=== PATIENT | female | born 1995 | race Caucasian/White ===

== ENCOUNTER 2023-06-23 08:46 | Outpatient (REF) | payer OTHER, SELFPAY ==
[2023-06-23 09:02] LABS: MANUAL DIFF FLAG NO
[2023-06-23 09:49] LABS: Basophils Percent Auto 0.7 % (0-2); Eosinophils Absolute Auto 0.4 X10*3/uL (0.0-0.4); Eosinophils Percent Auto 7.3 % (0-4); Hematocrit 36.4 % (37.0-47.0); Hemoglobin 12.5 g/dl (12.0-16.0); Imm Gran Abs Auto 0.01 X10*3/uL (0.00-0.03); Imm Gran Pct Auto 0.2 % (0.0-0.4); Lymphocytes Absolute Auto 1.7 X10*3/uL (1.2-4.9); Lymphocytes Percent Auto 29.1 % (20-40); Mean Corpuscular HGB Conc 34.3 g/dl (31.0-35.0); Mean Corpuscular Hemoglobin 29.8 pg (27.0-33.0); Mean Corpuscular Volume 86.9 fL (80.0-98.0); Mean Platelet Volume 10.3 fL (9.4-12.3); Monocytes Absolute Auto 0.4 X10*3/uL (0.1-1.2); Monocytes Percent Auto 6.1 % (2-11); Neutrophils Absolute Auto 3.3 x10*3/uL (2.0-8.3); Neutrophils Percent Auto 56.6 % (45-73); Platelet Count 261 X10*3/uL (160-400); Red Blood Count 4.19 X10*6/uL (4.20-5.50); Red Cell Distribution Width 12.5 % (11.0-16.0); White Blood Count 5.9 X10*3/uL (4.8-10.8)
[2023-06-23 10:03] LABS: Estimated Average Glucose 94 mg/dL; Hemoglobin A1c % 4.9 % (<6.0)
[2023-06-23 10:45] LABS: Alanine Aminotransferase 19 U/L (0-31); Albumin Level 4.3 g/dL (3.5-5.0); Alkaline Phosphatase 72 U/L (39-117); Anion Gap 13 (12-20); Aspartate Amino Transferase 19 U/L (5-31); Bilirubin Total 0.5 mg/dL (0.0-1.0); Blood Urea Nitrogen 10 mg/dL (9-16); Calcium 9.5 mg/dL (8.4-10.2); Carbon Dioxide 23 mmol/L (22-29); Chloride 107 mmol/L (96-108); Estimated Glomerular Filt Rate > 60; Glucose Fasting 73 mg/dL (60-99); Iron 148 mcg/dL (30-160); Percent Iron Saturation 42 % (15-50); Phosphorus 3.7 mg/dL (2.7-4.5); Potassium 4.2 mmol/L (3.3-5.1); Sodium 139 mmol/L (135-145); Total Iron Binding Capacity 354 mcg/dL (228-428); Total Protein 7.2 g/dL (6.5-8.0); Unsaturated Iron Binding 206 ug/dL
[2023-06-23 11:05] LABS: Ferritin 13 ng/mL (10-122); Free T4 (Free Thyroxine) 0.77 ng/dL (0.71-1.85); Thyroid Stimulating Hormone 2.79 uIU/mL (0.32-4.0); Vitamin D 25-OH Total 25.6 ng/mL (>30)
[2023-06-23 11:10] LABS: Folate 9.9 ng/mL (> or = 4.0); Vitamin B12 451 pg/mL (200-900)
== END 2023-06-23 08:47 | disposition home or self-care (01) ==
LOC: HO.LAB 08:46
PROVIDERS: PCP Nurse Practitioner Adult Health; Visit Provider Psychiatry & Neurology Psychiatry
DX: F39 Unspecified mood [affective] disorder (principal); F50.82 Avoidant/restrictive food intake disorder; F41.9 Anxiety disorder, unspecified
CPT/HCPCS: 36415; 80053; 82306; 82607; 82728; 82746; 83036; 83540; 83735; 84100; 84439; 84443; 85025

== ENCOUNTER → 2023-06-28 14:03 | Outpatient (REF) | payer OTHER, SELFPAY ==
--- NOTE | 2023-06-28 14:07 | ECG_ITS ---
Test Reason : R/O QTC FOR MED CONSIDERATIONS Blood Pressure : / mmHG Vent. Rate : 090 BPM Atrial Rate : 090 BPM P-R Int : 136 ms QRS Dur : 096 ms QT Int : 358 ms P-R-T Axes : 069 085 053 degrees QTc Int : 437 ms Normal sinus rhythm Normal ECG No previous ECGs available Referred By: Phyllis Thompson Electronically Signed By:HUYEN KENDRICK MD
== END ==
LOC: HO.CARD 14:03
PROVIDERS: PCP Nurse Practitioner Adult Health; Visit Provider Psychiatry & Neurology Psychiatry
DX: F34.89 Other specified persistent mood disorders (principal); F90.9 Attention-deficit hyperactivity disorder, unspecified type
CPT/HCPCS: 93005

== ENCOUNTER → 2023-06-28 14:07 | Outpatient (BNV) | payer OTHER, SELFPAY | PROVIDERS: PCP Nurse Practitioner Adult Health; Visit Provider Internal Medicine Cardiovascular Disease | DX: F34.89 Other specified persistent mood disorders (principal) | CPT/HCPCS: 93010 ==

== ENCOUNTER 2023-07-08 10:15 | Outpatient (RCR) | payer OTHER, SELFPAY ==
[2023-06-21 11:52] VITALS: BP 114/78; PULSE 81; TEMP 36.9
[2023-06-21 11:53] VITALS: BMI 23.0
--- NOTE | 2023-06-21 12:44 | PC.ADMIT ---
Patient is a 27 year old single individual who prefers to use they/them pronouns however stated she/her pronouns are ok as well. They were referred to PHP by their therapist d/t struggling with emotional regulation, depression and anxiety along with trauma. Patient reports having intrusive suicidal thoughts that they don't want to have stating, It's more intrusive thoughts I don't want to have them. Patient stated they have had thoughts thinking , Your better off or cut yourself when feeling increased stress. They denied any plans or intention of killing themselves . Patient reports they have supportive friends and parents. Patient is staying with her parents for more support in addition to their house being closer to the program. Patient stated, I try not to be along with my thoughts . Patient reports current job stress, works with [employer]. Patient is currently taking a leave of absence from work to work on their mental health. Stated they wants more control over their life in relation to work life. Hopes to get position they applied for in [place] and waiting to hear if they get the position. Patient is alert and oriented x4. Calm and cooperative. Reports intrusive passive SI, denied any plan or intention of killing themselves. Patient thoughts are clear and logical. They present with depressed mood and anxious affect. They were given a copy of their safety plan if needed. Medications reconciled with patient and patient's pharmacy. They report taking medications as prescribed and recently purchased a pill counter that is attached to their medication bottle to help remind them if they took the medication or not which they state has been very helpful.
--- NOTE | 2023-06-21 22:21 | P.HPPSP_ITS ---
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 She reports for the past 1.5 years she has had episodes of depression which have improved since addition of Lexapro about 1.5 months ago, although she continues to experience dramatic shifts in mood (more so that just depression) that occur most days throughout the day. She shares having a lot of SI /SIB thoughts ( more SIB than SI), sometimes more ignorable than other times, but is chronic and just under the surface... when things are good I can ignore them... not too bad right now . Lexapro was titrated to 20 mg over the past 1.5 months which has taken edge off thoughts, however anxiety seems worse, feels baseline issues with distractibility and focus are interfering with increasing demands she is under including being amidst job applications, ill pet. Mood stability at a 4 out of 10 (10 ideal), and rating symptoms severity: cognitive anxiety 6.5 /10, somatic anxiety 4 /10, depression 4 /10 and i rritability/mood swings severity at a 6 or7 /10. Denies alcohol or substance issues. No history of insomnia, usually sleeps 6-9 hours, sometimes less limited to work/school but will make up sleep. Presents as hyperthymic at baseline, animated, hypertalkative, impulsive, but subjectively reports energy as low. No risk-taking behaviors, describes pervasive generalized anxiety, gets overstimulated in social situations. Denies any history of AH, VH, paranoia or delusional thoughts. 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 She reports having had long standing neurodevelopmental issues with sensory integration challenges (tactile, auditory) as well as issues with feeding (textures) and carries a diagnosis of ARFID. Her mother is a automatic shirring machine operator who works at [employer]. Said she made friends easily growing up, but had difficulties holding onto friendships, suspects she was friendly enough to make friends, but also very shy early on, with persisting social awkwardness and impulsiveness which may have lent to some interpersonal limitations. I was treated like the annoying little sibling in school. I've done a lot of masking to fit in . Also notes that people (advisers/teachers/peers) have often undercalculated her academic abilities, does not come across as intelligent as she is, despite considerable academic success and ongoing education in STEM (currently working toward her Master's degree) No IP, PHP or detox admissions No suicide attempts, some minor (often unintentional) self harming biting tongue til it bleeds... liked the taste Scratched self on arms in HS EDB: dx ARFID, problems with certain textures as well as extensive food allergies severely limiting diet Psychiatrist: Preet Reid (recent had 2 nd appointment, prior to that provider was PCP) Therapist: Libra Other trials: Buspar (bad brain zaps), hyocyamine, hydroxyzine (blacked out) CURRENT MEDICATIONS: Lexapro 20 mg qd Flonase Linzess (linaclotide) for IBS [facility] Medical History (Updated 07/24/23 @ 17:59 by Phyllis Thompson MD) Asthma History of ovarian cyst History of Helicobacter pylori infection Syncope Migraines Avoidant-restrictive food intake disorder (ARFID) IBS (irritable bowel syndrome) Narrative: h/o early ear infections h/o severe food allergies - anaphylaxis - all fruits (including extracts and flavoring), vanilla, peanuts, tree nuts, sesame h/o ARFID - sincedoesnt weigh self but suspects her weight has been stable. Appetite stable but struggles with regular po intake due to tactile issues/food repulsions as well as anxiety regarding severe food allergies I've been reading food labels since I learned to read as a toddler h/o Irritable Bowel Syndrome Surgical History (Updated 06/21/23 @ 11:46 by Amara Griggs RN) History of endoscopy History of colonoscopy Family History: Mother and PGM with anxiety maternal aunt with personality disorder maternal uncle with schizophrenic illness Social History: Not , no children Was living in apartment in [place] during school just moved back home Currently living at home with parents, as she finishes her thesis on Optics Raised by her parents as an only child, no siblings - mom is a automatic shirring machine operator, dad works as health and safety tech at a local station Close with parents, but extended family dysfunction and estrangement from cousins/relatives Graduate HS in 2016 Graduate undergraduate from [employer] in 2019, majoring in Physics Currently in Master's program at [employer], anticipates completing degree this summer 2023 Currently amidst job applications, anticipates traveling to [place] for job interview Substance History: No alcohol, cannabis, nicotine or substance use history. Drinks coffee 1-2 times/day. Trauma History: reports having had a tough relationship with mom who was emotionally immature alludes to issues with parentification growing up, also some complicated friendship issues in [place], but otherwise denies physical, sexual, emotional abuse or traumatic events or losses Diagnostics Vital Signs (24Hr): Vital Signs - 24 hr 06/21/23 11:52 Temperature 98.5 F Pulse Rate 81 Blood Pressure 114/78 BMI result Body Mass Index 23.0 Meds/Allergies Meds Home Medications ?Medication ?Instructions ?Recorded ?Confirmed ?Type albuterol sulfate 90 mcg/actuation 2 puff inhalation Q4H PRN sob 06/21/23 06/21/23 History aerosol inhaler escitalopram oxalate 10 mg tablet 20 mg PO DAILY 06/21/23 06/21/23 History famotidine 20 mg tablet 20 mg PO DAILY 06/21/23 06/21/23 History fluticasone propionate 50 2 spray intranasal DAILY 06/21/23 06/21/23 History mcg/actuation nasal spray,suspension ibuprofen 200 mg tablet 200 - 600 mg PO Q6H PRN Pain 06/21/23 06/21/23 History linaclotide 72 mcg capsule 72 mcg PO QAM 06/21/23 06/21/23 History (Linzess) Allergies Allergies Allergy/AdvReac Type Severity Reaction Status Date / Time amoxicillin Allergy diaper rash Verified 06/21/23 11:49 clavulanic acid Allergy diaper rash Verified 06/21/23 11:49 [From Augmentin] hydroxyzine Allergy black out Verified 06/21/23 11:49 metronidazole Allergy nausea, Verified 06/21/23 11:49 vertigo, vision changes. peanut Allergy Anaphylaxis Verified 06/21/23 11:50 sesame oil Allergy Anaphylaxis Verified 06/21/23 11:51 tree nut Allergy Anaphylaxis Verified 06/21/23 11:50 vanilla extract flavor Allergy Anaphylaxis Verified 06/21/23 11:51 fruit Allergy Anaphylaxis Uncoded 06/21/23 12:53 Mental Status Exam Mental Status Exam Narrative: Alert, oriented, in no acute distress. Cooperative, engaged, friendly, animated, fidgeting at times, bouncing leg, frequently shiftin in seat but remains seated through encounter. Well-related. Eye contact maintained. Mood variable, labile. Affect variable, brighter than expected, no notable irritability, lability or tearfulness. Speech talkative, but normal rate rhythm, no pressured speech or latency. Maintains reciprocity. Thought process scattered, linear, coherent. Thought content related to stressors, executive dysfunction, feeling overstimulated, erratic, some impulsivity, denies helplessness and hopelessness, denies SI, intention or plan. Denies any aggressive ideation. No paranoia or delusional content elicited. No evidence of psychosis. Insight and judgment fair but adequate. Assessment & Plan Assessment & Plan (1) Other specified persistent mood disorders: Status: Acute Code(s): F34.89 - Other specified persistent mood disorders (2) Attention-deficit hyperactivity disorder, unspecified type: Status: Acute Code(s): F90.9 - Attention-deficit hyperactivity disorder, unspecified type (3) Generalized anxiety disorder: Status: Acute Code(s): F41.1 - Generalized anxiety disorder (4) Avoidant-restrictive food intake disorder (ARFID): Status: Acute Code(s): F50.82 - Avoidant/restrictive food intake disorder Assessment and Plan: hx suggestive of neurodivergence, r/o PDD Plan Admit to [facility] VS reviewed: abrefile; BP 114/78;?81 bpm start aripiprazole 1 mg qd (will titrate to whole tablet as tolerated) Continue regular medications for now Routine lab work ordered UDS, EKG as indicated MassPat reviewed Continue to monitor as per protocol Patient educated on: diagnosis and medication risk/benefits Informed Consent: understands Reason for continued partial hosp. stay Substantial Risk for: inability to function and med/psych decompensation Certification I certify that partial hospital treatment is medically necessary due to the symptoms and problems resulting from the patient's mental illness and the failure to treat the patient at the partial hospital level of care would likely result in the patient requiring inpatient psychiatric care which could not be prevented at a less intensive level of care. Time Spent With Patient Time: Total time managing care of this patient today __60__ minutes.
--- NOTE | 2023-06-23 14:23 | HO.PHP ---
Client's case has been opened and reviewed in treatment team.
--- NOTE | 2023-06-27 18:21 | HO.PHPPROGNO ---
Subjective Subjective Date of Service: 06/27/23 Reason For Visit: MDD,GENE Interim History: Continues with emotional dysregulation marked by high reactivity, easily emotional and tearful. Was in fact tearful when she came onto telehealth appointment. Had a 1-2 minute delay trying to connect, staff was assisting her and supportive but says this is how I get...just any little thing can easily overwhelm me and I start to cry . Aside from the tearfulness, she recovered spontaneously while wiping tears away and was her bright self now that the issue was resolved. She notes that her emotionality is the cause of a lot of my interpersonal problems . She describes a tendency to be hypersensitive to feedback, or sometimes getting momentarily mixed signals or misunderstood or will misunderstand interactions on account of feeling heightened and easily overstimulated in interpersonal interacitons, even ones she is enjoying. Often times feeling overstimulated isnt necessarily stemming from social anxiety. Though identifies as a people pleaser, she is working on self advocacy and trying to communicate and be more grounded in interactions. but is difficult. Considerable attentional dysregulation described by patient, which she is not fillu aware of . Just easily getting caught up in things. Endorses occasional intrusive thoughts, vvarying things, but denies any actual SI and SHB not really . Sleep is inconsistent but tries to maintain sleep schedule. SHe needs paprwork filled out for return to work. No issues wih alcohol or substance use or cannabis. Labwork mostly unremarkable aside from mild vitamin D insuffiency, I ordered 5000 iu to take for the next 2 months and then can return to 2000 IU as she is presribed. She asks for the order for routine EKG (to establish baseline as we anticipate initiating a stimulant medication later in the week) which she says she will do after program today. Medication Compliance: Yes Side effects from medications: No Attending Groups: Yes Review of Systems Acute medical concerns: No Mental Status Exam Mental Status Exam Narrative: Alert, oriented, in no acute distress. Cooperative, engaged, animated, fidgeting at times. Eye contact intermittent. Mood variable, labile, tearful. Affect variable, brighter than expected, no notable irritability, lability or tearfulness. Speech talkative, but normal rate rhythm, no pressured speech or latency. Thought process scattered, linear, coherent. Thought content related to stressors, executive dysfunction, feeling overstimulated, erratic, some impulsivity, denies helplessness and hopelessness, denies SI, intention or plan. Denies any aggressive ideation. No paranoia or delusional content elicited. No evidence of psychosis. Insight and judgment fair but adequate. Diagnostics Vital Signs (24Hr): BMI result Body Mass Index 23.0 Assessment & Plan Assessment & Plan (1) Other specified persistent mood disorders: Status: Acute Code(s): F34.89 - Other specified persistent mood disorders (2) Attention-deficit hyperactivity disorder, unspecified type: Status: Acute Code(s): F90.9 - Attention-deficit hyperactivity disorder, unspecified type (3) Other mixed anxiety disorders: Status: Acute Code(s): F41.3 - Other mixed anxiety disorders (4) Avoidant-restrictive food intake disorder (ARFID): Status: Acute Code(s): F50.82 - Avoidant/restrictive food intake disorder Plan increase aripiprazole to 2 mg qd (will cont to titrate to 3.5 - 5 mg as tolerated) discussed trialing guanfacine, and stimulant (likely Vyvanse) once mood is better regulated start vitamin D 5000 IU daily for vitamin D insufficiency (for 3 months, then can cont at 2000 IU qd) may consider lowering dose of Lexapro to 15 mg continue other regular medications Routine lab work reviewed, pending routine EKG UDS as indicated continue to monitor Patient educated on: diagnosis and medication risk/benefits Informed Consent: understands Reason for contiued partial hosp. stay Substantial Risk for: inability to function and med/psych decompensation Certification I certify that partial hospital treatment is medically necessary due to the symptoms and problems resulting from the patient's mental illness and the failure to treat the patient at the partial hospital level of care would likely result in the patient requiring inpatient psychiatric care which could not be prevented at a less intensive level of care. Total time managing care of this patient today _30___ minutes. Discharge Plan Discharge Attending provider: Phyllis Thompson Additional Instructions: [facility] has an OP therapist, Libra Phillips, in which her next scheduled appointment is July 07, 2023 at 5 PM via telehealth. [facility] has a med provider, Preet Chen, in which her next scheduled appointment is July 22, 2023 at 9 AM via telehealth. Medications: New aripiprazole 2 mg tablet 2 mg PO BEDTIME Qty: 20 0RF cholecalciferol (vitamin D3) [Vitamin D3] 125 mcg (5,000 unit) tablet 125 mcg PO DAILY Qty: 30 2RF Rx Instructions: with meal Continued famotidine 20 mg tablet 20 mg PO DAILY Patient Comments: Last does a few days ago. albuterol sulfate 90 mcg/actuation Hfa Aerosol Inhaler 2 puff INHALATION Q4H PRN (Reason: sob) fluticasone propionate 50 mcg/actuation spray,suspension 2 spray intranasal DAILY escitalopram oxalate 10 mg tablet 20 mg PO DAILY Patient Comments: Patient stated recently increased to 2 tabs daily. Linzess 72 mcg capsule 72 mcg PO QAM No Action ibuprofen 200 mg Tablet 200 - 600 mg PO Q6H PRN (Reason: Pain) Patient Comments: Patient takes OTC Stand Alone Forms: Patient Portal Discharge page Print Language: Kyrgyz Telehealth Telehealth Telehealth Platform: Other (please specify) Location of provider rendering services: other (private office) Location of patient: other ([facility]) Patient Identification confirmed using: Name, : Yes Telehealth method: video Patient verbally consented to treatment: Yes
--- NOTE | 2023-07-01 22:59 | P.PNPSP_ITS ---
Subjective Subjective Date of Service: 07/01/23 Reason For Visit: MDD,GENE Interim History: Continues with emotional lability and intrusive thoughts. Easily triggered, became tearful in groups and in our session. She is tolerating Abilify but we are moving slowly due to hypersensitivity to side effects and general naivety and apprehension about medication. She started on a few granules and was able to increase to 1/2 tablet and now to 1 whole tablet of 2 mg. She is still quite dysregulated, whic makes work in groups challenging, as any emotionally or intellectually provoking content will make her cry. She gets frustrated with herself that she cries so easily and says it compels her to stick with the medication and has been compliant on the ABilify. She denies any adverse effects thus far, which is helping relieve some of her anxieties about taking a mood stabilizer and is feeling hopeful it will work. She was hyperfocused on an interaction from groups on Tuesday which triggered the ARFID stuff. Has been difficult to eat much in the past 2 days, she has been ruminating on something that was said. Endorses transient hopelessness, helplessness but denies any SI, urge, intention, plan nor thoughts of self harm. Attention regulation is still an issue, and will plan to start guanfacine and possibly low dose Vyvanse next week once ABlify is further titrated and mood is better regulated, as she continues to struggle with chronic ADHD symptoms. She has difficulty staying focused, and is scattered during our conversation. We will continue to titrate by 1 mg.day now that patient is feeling more comfortable and confident with the Abilify. WIll increase to 3 mg Sat and 3-4 mg on Tue, if tolerated will move to 4-5 mg by Tuesday. Will reassess early next week to see if further titration warranted before considerating next steps. Appetite variable, poor. Sleep has improved. Energy stable. Medication Compliance: Yes Side effects from medications: No Attending Groups: Yes Review of Systems Acute medical concerns: No Mental Status Exam Mental Status Exam Narrative: Alert, oriented, in no acute distress. Cooperative, engaged, animated, fidgeting at times. Eye contact intermittent. Mood variable, labile, tearful. Affect variable, brighter than expected, no notable irritability, lability or tearfulness. Speech talkative, but normal rate rhythm, no pressured speech or latency. Thought process scattered, linear, coherent. Thought content related to stressors, executive dysfunction, feeling overstimulated, erratic, some impulsivity, denies helplessness and hopelessness, denies SI, intention or plan. Denies any aggressive ideation. No paranoia or delusional content elicited. No evidence of psychosis. Insight and judgment fair but adequate. Diagnostics Vital Signs (24Hr): BMI result Body Mass Index 23.0 Assessment & Plan Assessment & Plan (1) Other specified persistent mood disorders: Status: Acute Code(s): F34.89 - Other specified persistent mood disorders (2) Attention-deficit hyperactivity disorder, unspecified type: Status: Acute Code(s): F90.9 - Attention-deficit hyperactivity disorder, unspecified type (3) Other mixed anxiety disorders: Status: Acute Code(s): F41.3 - Other mixed anxiety disorders (4) Avoidant-restrictive food intake disorder (ARFID): Status: Acute Code(s): F50.82 - Avoidant/restrictive food intake disorder Plan increase aripiprazole to 3-4 mg qd (will cont to slowly to 5 mg as tolerated) discussed trialing guanfacine, and stimulant (likely Vyvanse) nexy week continue vitamin D 5000 IU daily for vitamin D insufficiency (for 3 months, then can cont at 2000 IU qd) may consider lowering dose of Lexapro to 15 mg continue other regular medications Routine lab work reviewed, pending routine EKG UDS as indicated continue to monitor Patient educated on: diagnosis and medication risk/benefits Informed Consent: understands Reason for contiued partial hosp. stay Substantial Risk for: inability to function, rapid decompensation and med/psych decompensation Certification I certify that partial hospital treatment is medically necessary due to the symptoms and problems resulting from the patient's mental illness and the failure to treat the patient at the partial hospital level of care would likely result in the patient requiring inpatient psychiatric care which could not be prevented at a less intensive level of care. Total time managing care of this patient today __30__ minutes. Discharge Plan Discharge Attending provider: Phyllis Thompson Additional Instructions: [facility] has an OP therapist, Libra Phillips, in which her next scheduled appointment is July 07, 2023 at 5 PM via telehealth. [facility] has a med provider, Preet Chen, in which her next scheduled appointment is July 22, 2023 at 9 AM via telehealth. Medications: New aripiprazole 2 mg tablet 2 mg PO BEDTIME Qty: 20 0RF cholecalciferol (vitamin D3) [Vitamin D3] 125 mcg (5,000 unit) tablet 125 mcg PO DAILY Qty: 30 2RF Rx Instructions: with meal Continued famotidine 20 mg tablet 20 mg PO DAILY Patient Comments: Last does a few days ago. albuterol sulfate 90 mcg/actuation Hfa Aerosol Inhaler 2 puff INHALATION Q4H PRN (Reason: sob) fluticasone propionate 50 mcg/actuation spray,suspension 2 spray intranasal DAILY escitalopram oxalate 10 mg tablet 20 mg PO DAILY Patient Comments: Patient stated recently increased to 2 tabs daily. Linzess 72 mcg capsule 72 mcg PO QAM No Action ibuprofen 200 mg Tablet 200 - 600 mg PO Q6H PRN (Reason: Pain) Patient Comments: Patient takes OTC Stand Alone Forms: Patient Portal Discharge page Print Language: Faroese
--- NOTE | 2023-07-04 22:08 | P.PNPSP_ITS ---
Subjective Subjective Date of Service: 07/04/23 Reason For Visit: MDD,GENE Interim History: Patient seen for follow up. Has worked dose up to 4 mg daily. Noticing feeling tired in the AM. more difficult to get out of bed, which was not appreciated at 2 or 3 mg. Will plan to stay another night at 4 mg before moving up to 5 mg. Sleep has been good otherwise, feel rested. Tiredness clears after the first hour or so. Mood has been a bit better now...I feel like my bucket is bigger (for containing her emotions) and its much easier to manage my feelings without getting overwhelmed and crying. Rates mood stability as up to a 6 or 7 out of 10 (from a 2 on admission)/ SHe relays some incident in the past few days where she became so anxious she started to cry but was quickly able to settle down and reel it in (regain her composure) which she feels is a significant imrpovement. Endorses decrease in intrusive thoughts. Denies any SIB or SI. We discussed starting the guanfacine which she would like to start by cutting in half (give her sensitivity to medication). Will plan to start ADHD treatment on IR Adderall which will be easier to control for dosing and once we have a sense of how it affects her while on the medication and as it wears off, then will plan to transition to a long acting. I mention that Vyvanse comes in chewable formulation (which she may prefer controlling the dose better, as partial doses) however given her fruit allergy, she says that flavoring are often problematic for her and will plan to stick with the capsules. FOr now, I would like to see her a few more days working up the dose of Abilify before we start Adderall at 1/4 - 1/2 tablet in the AM. She denies any SI. Denies hx of HI, AH, VH. Patient does not use alcohol or cannabis or other substances. I will refill ABlify at 2 mg and 5 mg to enable dosing between 3.5 mg and 5 mg for the time being. APpetie and energy are intact. She denies any panic symptoms. ROS negative. 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 Medication Compliance: Yes Side effects from medications: No Attending Groups: Yes Review of Systems Acute medical concerns: No Mental Status Exam Mental Status Exam Narrative: Alert, oriented, in no acute distress. Cooperative, engaged, animated but calmer. Eye contact good. Mood bit better , labile, less tearful. Affect full range, brighter, no lability or tearfulness. Speech talkative, but normal rate rhythm, no pressured speech or latency. Thought process scattered, linear, coherent. Thought content related to stressors, executive dysfunction, feeling overstimulated, denies helplessness and hopelessness, denies SI, intention or plan. Denies any aggressive ideation. No paranoia or delusional content elicited. No evidence of psychosis. Insight and judgment fair but adequate. Diagnostics Vital Signs (24Hr): BMI result Body Mass Index 23.0 Assessment & Plan Assessment & Plan (1) Other specified persistent mood disorders: Status: Acute Code(s): F34.89 - Other specified persistent mood disorders (2) Attention-deficit hyperactivity disorder, unspecified type: Status: Acute Code(s): F90.9 - Attention-deficit hyperactivity disorder, unspecified type (3) Other mixed anxiety disorders: Status: Acute Code(s): F41.3 - Other mixed anxiety disorders (4) Avoidant-restrictive food intake disorder (ARFID): Status: Acute Code(s): F50.82 - Avoidant/restrictive food intake disorder Plan increase aripiprazole to 4-5 mg qd (will hold at 5 mg) start guanfacine Er 1 mg daily at 5pm. may consider starting in AM along with and stimulant this week plan to start Adderall 1.25 mg in the AM (alone without guanfacine at first) hold off starting Vyvanse for now, will see if insurance will cover/and in stock continue vitamin D 5000 IU daily for vitamin D insufficiency (for 3 months, then can cont at 2000 IU qd) may consider lowering dose of Lexapro to 15 mg (?contributing to emotional lability vs helping with anxiety) continue other regular medications Routine lab work reviewed (mild vit D defic, increase supplement from 2000 to 5000 IU for 2-3 months) Reviewed EKG wnl QTc ~420 ms UDS as indicated continue to monitor Certification I certify that partial hospital treatment is medically necessary due to the symptoms and problems resulting from the patient's mental illness and the failure to treat the patient at the partial hospital level of care would likely result in the patient requiring inpatient psychiatric care which could not be prevented at a less intensive level of care. Total time managing care of this patient today ____ minutes. Discharge Plan Discharge Attending provider: Phyllis Thompson Additional Instructions: [facility] has an OP therapist, Libra Phillips, in which her next scheduled appointment is July 07, 2023 at 5 PM via telehealth. [facility] has a med provider, Preet Chen, in which her next scheduled appointment is July 22, 2023 at 9 AM via telehealth. Medications: New cholecalciferol (vitamin D3) [Vitamin D3] 125 mcg (5,000 unit) tablet 125 mcg PO DAILY Qty: 30 2RF Rx Instructions: with meal aripiprazole 5 mg tablet 5 mg PO DAILY Qty: 30 0RF dextroamphetamine-amphetamine [Adderall] 5 mg tablet 5 mg PO DAILY Qty: 14 0RF Rx Instructions: Partial Fill upon patient request. lisdexamfetamine 10 mg capsule 10 mg PO QAM Qty: 14 0RF Rx Instructions: Partial Fill upon patient request. guanfacine 1 mg tablet extended release 24 hr 1 mg PO DAILY Qty: 20 0RF Continued famotidine 20 mg tablet 20 mg PO DAILY Patient Comments: Last does a few days ago. albuterol sulfate 90 mcg/actuation Hfa Aerosol Inhaler 2 puff INHALATION Q4H PRN (Reason: sob) fluticasone propionate 50 mcg/actuation spray,suspension 2 spray intranasal DAILY escitalopram oxalate 10 mg tablet 20 mg PO DAILY Patient Comments: Patient stated recently increased to 2 tabs daily. Linzess 72 mcg capsule 72 mcg PO QAM aripiprazole 2 mg tablet 2 mg PO BEDTIME Qty: 30 0RF No Action ibuprofen 200 mg Tablet 200 - 600 mg PO Q6H PRN (Reason: Pain) Patient Comments: Patient takes OTC Stand Alone Forms: Patient Portal Discharge page Print Language: Azerbaijani
--- NOTE | 2023-07-05 20:23 | P.PNPSP_ITS ---
Subjective Subjective Date of Service: 07/05/23 Reason For Visit: MDD,GENE Interim History: Roberto patient sitting alone in group room C. Looked panicked and snacking on goldfish crackers. Said she took the 1/4 tablet of ADderall this morning on an empty stomach which she acknowledges wasn't supposed to do but wasn't hungry and didnt think the 1/4 tablet would effect her much. She is feeling anxious, not sure if it is the medication. She feels better coming to sit in my office. Informs me that her mother was diagnosed with COVID this AM and was already feeling anxious about this. She came to program today wearing a mask for fear of getting someone sick, but she denies any current cold or flu-like symptoms. She has some nausea and racing heart feeling which she says probably didnt help that she had some coffee this morning after taking the Adderall. Her vitals presently are 117/78 and pulse 84 bpm. She relays being reassured by this and was more relaxed for the remainder of our encounter. She brought guanfacine and took half of a tablet. She notes taking 1/2 tablet last night as planned and overall feels she tolerated it well, although said she felt some mild light-headedness, but relays not being concerned about that and adds that I'm exquisitely sensitive to medication, I feel like I'm doing fine with that Abilify she has slowly worked up to 4 mg as of last night and adds that her mood has been more stable and will continue to slowly titrate, although we agree to have her stay at 4 mg for the time being especially with starting on new meds today. She also reports, despite adverse effects this morning, my brain felt clearer like it was working better... Brain go brrr'...I could follow conversations more closely without getting distracted . 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 She denies any SI, HI, AH, VH. Still reactive but does appear to be stablizing. Patient has severe allergy history and understandably is anxious about new medications, likely causes more hyperreactivity when symptoms are noticed. Will continue to manage treatment changes with small adjustments, and overall slow and cautious approach to prescribing. Later in the day she approaches me to inform me that she was noticing some transient tingling in her lips (no notable redness, swelling or rash on examination) that occurred within the hour of taking the guanfacine and is most subsided now. She had been anxious but says she is managing it well enough and was reassurred by the fact that she is at the program/hospital while this was occurring in case anything bad had happened. We agree to hold off on the guanfacine for the time being. I also suggest we could hold off on taking the stimulant for the next few days also in case patient develops any covid symptoms, which could cause confusion and considerable distress especially if confused with potential AE from adderall. She has been on the ABilify over a week now and is comfortable with this and we could continue to focus on the mood stabilizer for the time being. NOnethless, she was encouraged to only take the Adderall in [place] AM tomorrow if she felt up to it. No changes in sleep, energy or appetite (cont arfid with some improvement with Ablify) Medication Compliance: Yes Side effects from medications: No Attending Groups: Yes Review of Systems Acute medical concerns: No Mental Status Exam Mental Status Exam Narrative: Alert, oriented, in no acute distress. Cooperative, engaged, animated but calmer. Eye contact good. Mood bit better , labile, less tearful. Affect full range, brighter, no lability or tearfulness. Speech talkative, but normal rate rhythm, no pressured speech or latency. Thought process scattered, linear, coherent. Thought content related to stressors, executive dysfunction, feeling overstimulated, denies helplessness and hopelessness, denies SI, intention or plan. Denies any aggressive ideation. No paranoia or delusional content elicited. No evidence of psychosis. Insight and judgment fair but adequate. Diagnostics Vital Signs (24Hr): BMI result Body Mass Index 23.0 Assessment & Plan Assessment & Plan (1) Attention-deficit hyperactivity disorder, unspecified type: Status: Acute Code(s): F90.9 - Attention-deficit hyperactivity disorder, unspecified type Plan continue aripiprazole 4 mg/d (may increase to 5 mg qd as tolerated) hold guanfacine Er 1 mg (reporting concern for allergic sx) took 1/4 tablet of Adderall, will reassess may continue Adderall 1.25 mg (1/4 tablet) daily as tolerated continue vitamin D 5000 IU daily for vitamin D insufficiency (for 3 months, then can cont at 2000 IU qd) may consider lowering dose of Lexapro to 15 mg (?contributing to emotional lability vs helping with anxiety) continue other regular medications Routine lab work reviewed (mild vit D defic, increase supplement from 2000 to 5000 IU for 2-3 months) Reviewed EKG wnl QTc ~420 ms UDS as indicated continue to monitor Patient educated on: diagnosis, medication risk/benefits and medical condition Informed Consent: understands Reason for contiued partial hosp. stay Substantial Risk for: med/psych decompensation Certification I certify that partial hospital treatment is medically necessary due to the symptoms and problems resulting from the patient's mental illness and the failure to treat the patient at the partial hospital level of care would likely result in the patient requiring inpatient psychiatric care which could not be prevented at a less intensive level of care. Total time managing care of this patient today __30__ minutes. Discharge Plan Discharge Attending provider: Phyllis Thompson Additional Instructions: [facility] has an OP therapist, Libra Phillips, in which her next scheduled appointment is July 07, 2023 at 5 PM via telehealth. [facility] has a med provider, Preet Chen, in which her next scheduled appointment is July 22, 2023 at 9 AM via telehealth. Medications: New cholecalciferol (vitamin D3) [Vitamin D3] 125 mcg (5,000 unit) tablet 125 mcg PO DAILY Qty: 30 2RF Rx Instructions: with meal aripiprazole 5 mg tablet 5 mg PO DAILY Qty: 30 0RF dextroamphetamine-amphetamine [Adderall] 5 mg tablet 5 mg PO DAILY Qty: 14 0RF Rx Instructions: Partial Fill upon patient request. lisdexamfetamine 10 mg capsule 10 mg PO QAM Qty: 14 0RF Rx Instructions: Partial Fill upon patient request. guanfacine 1 mg tablet extended release 24 hr 1 mg PO DAILY Qty: 20 0RF Continued famotidine 20 mg tablet 20 mg PO DAILY Patient Comments: Last does a few days ago. albuterol sulfate 90 mcg/actuation Hfa Aerosol Inhaler 2 puff INHALATION Q4H PRN (Reason: sob) fluticasone propionate 50 mcg/actuation spray,suspension 2 spray intranasal DAILY escitalopram oxalate 10 mg tablet 20 mg PO DAILY Patient Comments: Patient stated recently increased to 2 tabs daily. Linzess 72 mcg capsule 72 mcg PO QAM aripiprazole 2 mg tablet 2 mg PO BEDTIME Qty: 30 0RF No Action ibuprofen 200 mg Tablet 200 - 600 mg PO Q6H PRN (Reason: Pain) Patient Comments: Patient takes OTC Stand Alone Forms: Patient Portal Discharge page Print Language: Indonesian
--- NOTE | 2023-07-06 09:52 | PC.NURSE ---
Patient c/o headache, nausea, and slight dizziness today. Stated she felt this way yesterday and met with Dr Thompson, she is holding the Adderall as instructed. VS BP 109/70 P 88 T 98.6. Stated she took a Covid test and it was negative. She stated she may leave early if not feeling better. I also cortexted Dr Thompson with the above information.
--- NOTE | 2023-07-08 23:43 | HO.PHPPROGNO ---
Subjective Subjective Date of Service: 07/08/23 Reason For Visit: MDD,GENE Interim History: Patient seen for follow-up, anticipating discharge at the end of program today.? Has been finding the 1/4 tablet of Adderall helpful. Makes heart race but feels it is tolerance and worth taking given how centered and less anxious she feels. She had had an allergic reaction to the guanfacine and was stopped. Reports no acute issues or concerns in interim. Medication compliant, medications well-tolerated. Denies any adverse effects.? Mood is stable.? Denies any hopelessness or SI. Denies thoughts of harming self or others at this time. Denies any aggressive ideation or HI. Denies any paranoia or AH or VH. Sleep, appetite, energy stable. Mental Status Exam Mental Status Exam Narrative: Alert, oriented, in no acute distress. Calm, cooperative. Mood stable, affect appropriate. Speech normal. Thought process linear, coherent, more goal-directed. Thought content related to stressors, future-oriented, denies any helplessness, hopelessness or SI.? No aggressive ideation or HI. No paranoia or delusional content elicited. No evidence of psychosis. Insight and judgment fair-good. Diagnostics Vital Signs (24Hr): BMI result Body Mass Index 23.0 Assessment & Plan Assessment & Plan (1) Attention-deficit hyperactivity disorder, unspecified type: Status: Acute Code(s): F90.9 - Attention-deficit hyperactivity disorder, unspecified type (2) Other specified persistent mood disorders: Status: Acute Code(s): F34.89 - Other specified persistent mood disorders (3) Other mixed anxiety disorders: Status: Acute Code(s): F41.3 - Other mixed anxiety disorders (4) Avoidant-restrictive food intake disorder (ARFID): Status: Acute Code(s): F50.82 - Avoidant/restrictive food intake disorder (5) Vitamin D insufficiency: Status: Acute Code(s): E55.9 - Vitamin D deficiency, unspecified Plan Discharge from [facility] Continue regular medications including aripiprazole 5 mg qd Adderall 1.25-2.5 mg BID prn focus/concentration as tolerated discontinue guanfacine Er due to allergic reaction continue vitamin D 2000 IU qd Refills sent to pharmacy Will defer further medication management to outpatient provider *Safety plan reviewed *Discharge Diagnoses reviewed with patient, as well as treatment course, discharge plan (including medication regime, medication management, potential side effects) as well as treatment rationale were also revisited *If patient wishes, outpatient provider may reach out to me for any further questions or clarification as pertains to this patient?s clinical care/treatment during their stay at [facility] (contact information provided to patient)?? Patient educated on: diagnosis and medication risk/benefits Informed Consent: understands Reason for contiued partial hosp. stay Substantial Risk for: stable for discharge Certification I certify that partial hospital treatment is medically necessary due to the symptoms and problems resulting from the patient's mental illness and the failure to treat the patient at the partial hospital level of care would likely result in the patient requiring inpatient psychiatric care which could not be prevented at a less intensive level of care. Total time managing care of this patient today _30___ minutes. Discharge Plan Discharge Attending provider: Phyllis Thompson Additional Instructions: [facility] has an OP therapist, Libra Phillips, in which her next scheduled appointment is July 07, 2023 at 5 PM via telehealth. [facility] has a med provider, Preet Chen, in which her next scheduled appointment is July 22, 2023 at 9 AM via telehealth. Medications: New cholecalciferol (vitamin D3) [Vitamin D3] 125 mcg (5,000 unit) tablet 125 mcg PO DAILY Qty: 30 2RF Rx Instructions: with meal aripiprazole 5 mg tablet 5 mg PO DAILY Qty: 30 0RF dextroamphetamine-amphetamine [Adderall] 5 mg tablet 5 mg PO DAILY Qty: 14 0RF Rx Instructions: Partial Fill upon patient request. lisdexamfetamine 10 mg capsule 10 mg PO QAM Qty: 14 0RF Rx Instructions: Partial Fill upon patient request. Continued famotidine 20 mg tablet 20 mg PO DAILY Patient Comments: Last does a few days ago. albuterol sulfate 90 mcg/actuation Hfa Aerosol Inhaler 2 puff INHALATION Q4H PRN (Reason: sob) fluticasone propionate 50 mcg/actuation spray,suspension 2 spray intranasal DAILY escitalopram oxalate 10 mg tablet 20 mg PO DAILY Patient Comments: Patient stated recently increased to 2 tabs daily. Linzess 72 mcg capsule 72 mcg PO QAM aripiprazole 2 mg tablet 2 mg PO BEDTIME Qty: 30 0RF No Action ibuprofen 200 mg Tablet 200 - 600 mg PO Q6H PRN (Reason: Pain) Patient Comments: Patient takes OTC Stand Alone Forms: Patient Portal Discharge page Patient Education: Mood Disorders (DC), ADHD in Adults (ED), ADHD in Adults (DC), ADHD in Adults (GEN) Print Language: Wolof
== END 2023-07-08 23:59 | disposition home or self-care (01) ==
LOC: HO.PHPA 10:15
PROVIDERS: Visit Provider Psychiatry & Neurology Psychiatry
DX: F90.9 Attention-deficit hyperactivity disorder, unspecified type (principal); F34.89 Other specified persistent mood disorders; F41.3 Other mixed anxiety disorders; F50.82 Avoidant/restrictive food intake disorder; E55.9 Vitamin D deficiency, unspecified; Z79.899 Other long term (current) drug therapy
CPT/HCPCS: 90791; 90853